=== PATIENT | male | born 1990 | race Native Hawaiian/Other Pacific Islander ===

== ENCOUNTER 2018-07-14 16:56 | Emergency (ER) | payer OTHER ==
[~2018-07-14] VITALS: Ht 177.8 cm; Wt 79.4 kg
[2018-07-14 17:03] VITALS: BP 137/79; TEMP 97.2
[2018-07-14] MEDS ORDERED: [UNRECOGNIZED DRUG - CODE] OP (17:31)
== END 2018-07-14 17:50 | disposition home or self-care (01) ==
LOC: ED 16:56
DX: S05.02XA Injury of conjunctiva and corneal abrasion without foreign body, left eye, initial encounter (principal)
CPT/HCPCS: 99282

== ENCOUNTER 2021-03-19 16:30 | Outpatient (CLI) | payer BC, OTHER ==
[~2021-03-19 16:30] MED LIST: [UNRECOGNIZED DRUG - CODE] OP
== END 2021-03-19 20:02 | disposition home or self-care (01) ==
LOC: RAD 16:30
PROVIDERS: ATTEND Nurse Practitioner Family
DX: U07.1 COVID-19 (principal)